=== PATIENT | female | born 1990 | race Hispanic/Latino ===

== ENCOUNTER 2023-07-08 10:57 | Day surgery (SDC) | payer BC ==
[2023-07-08 09:00] LABS: Absolute Lymphocytes (CBC) 1.8 K/uL (0.7-4.9); Hematocrit 40.3 % (36.0-45.0); Lymphocytes % 23.3 % (15.3-44.8); MCV 91.9 fL (80-100); MPV 8.3 fL (7.6-11.3); Platelets 270 thou/uL (152-406); RBC Red Blood Cell Count 4.38 M/uL (3.86-4.86)
--- NOTE | 2023-07-08 09:16 | RAD REPORT ---
EXAM DESCRIPTION: Araceli Prince (2 Views)07/08/2023 8:59 am CLINICAL HISTORY: Preop for cholecystectomy COMPARISON: 2017 FINDINGS: The lungs appear clear of acute infiltrate. The heart is normal size IMPRESSION: No acute abnormalities displayed
[2023-07-08 09:17] LABS: Albumin 3.6 g/dL (3.4-5.0); Bilirubin Direct 0.2 mg/dL (0-0.2); Bilirubin Indirect, Calculated 0.2 mg/dL (0.2-0.8); Bilirubin Total 0.4 mg/dL (0.2-1.0); Protein, Total 7.5 g/dL (6.4-8.2)
[2023-07-08] MEDS: Ringers Lactate 1,000 ML IV ONE (11:20)
[2023-07-08] MEDS ORDERED: ROCURONIUM 50 MG/5 ML VIAL IV ONE (11:53)
[2023-07-08] MEDS ORDERED: SUGAMMADEX SODIUM 200 MG/2 ML VIAL IV ONE (11:53)
[2023-07-08] MEDS ORDERED: SUCCINYLCHOLINE 20 MG/ML (10 ML) IV ONE (11:53)
[2023-07-08] MEDS ORDERED: FENTANYL CITR 100 MCG/2 ML ONE ×2 (11:54→12:42)
[2023-07-08] MEDS ORDERED: ONDANSETRON 4 MG/2 ML VIAL ONE (11:54)
[2023-07-08] MEDS ORDERED: MIDAZOLAM HCL 2 MG/2 ML INJ ONE (11:54)
[2023-07-08] MEDS ORDERED: LIDOCAINE 2% MPF 5 ML VIAL ONE (11:54)
[2023-07-08] MEDS ORDERED: propofoL 200 MG/20 ML VIAL IV ONE (11:54)
[2023-07-08] MEDS: CEFOXITIN SODIUM 1 GM/VIAL ONE (12:40)
[2023-07-08] MEDS ORDERED: dexAMETHasone 10 MG/ML VIAL ONE (12:40)
[2023-07-08] MEDS: HYDROMORPHONE HCL 1 MG/ML INJ ONE (13:50)
[2023-07-08 13:56] VITALS: O2SAT 100
--- NOTE | 2023-07-08 14:08 | P.BOP ---
Preoperative diagnosis: acute cholecystitis, symptomatic cholelithiasis Postoperative diagnosis: same Primary procedure: Laparoscopic cholecystectomy Estimated blood loss: <10cc Specimen: gb Findings: as above Anesthesia: General Complications: None Transferred to: Recovery Room Condition: Good
[2023-07-08] MEDS: CODEINE 30MG/APAP 300MG TAB ONE (14:50)
[2023-07-08 14:59] VITALS: BP 117/81; TEMP 97.8
--- NOTE | 2023-07-08 21:04 | OP ---
Date of Procedure: 07/08/2023 Surgeon: Chalino Michele MD Preoperative Diagnoses: Acute cholecystitis, symptomatic cholelithiasis. Postoperative Diagnoses: Acute cholecystitis, symptomatic cholelithiasis. Procedure: Laparoscopic cholecystectomy. Estimated Blood Loss: Less than 10 mL. Specimen: Gallbladder. Anesthesia: General plus local. Complications: None. Indications: This is a case of a 32-year-old patient, who comes to us with above diagnoses. We full y explained the benefits, alternatives, and risks of laparoscopic possible open cholecystectomy which include, but not limited to infection, bleeding, damage to adjacent structures, anesthesia complicat ion, choledocholithiasis, bile leak, pancreatitis, MT, and . She also understands this may not relieve the symptoms. She might need more than one surgical intervention. She understood, signed a consent. Description Of Procedure: The patient was brought to the operating room, placed in supine position, anesthesia was done without complication. Abdominal area was prepped and draped in a sterile fashion Marcaine 0.5% was injected for local anesthetic, followed by sharp incision of the skin in the infra umbilical region. Incision was carried down to fascia, which was opened under direct vision. Perito neum was encountered, opened under direct vision. Vicryl #1 was placed inside the fascia. Jessica tr ocar was carefully introduced. No bleeding was obtained. I placed 3 more trocars, 5 mm each one of them, in epigastric, right upper quadrant area under direct visualization. This allowed me to put a grasper in the fundus of the gallbladder and other 1 in infundibulum, retracting the gallbladder in t he inferolateral fashion, exposing the triangle of Calot, obtaining critical view. Cystic duct and c ystic artery were clearly isolated, freed circumferentially and a connection between those and the ga llbladder was clearly identified. I proceeded to ligate those by using at least 3 clips proximal, 1 clip distal, ligation in middle. Same was done with the cystic artery. No bile leak. No bleeding. The gallbladder was removed from liver using Bovie cauterizer and removed from abdominal cavity usin g EndoCatch through the umbilical incision. The area was inspected once again, no bile leak, no blee ding. At that moment, I proceeded to remove the trocars under direct vision. Deflated the pneumoper itoneum. Closed the fascia with #1 Vicryl, irrigated subcutaneous tissue, closed that with 3-0 chrom ic and the skin with 3-0 chromic and Steri-Strips on top. Sponge counts, instrument counts were nicki ect. The patient was sent to recovery in stable condition. Disposition: Home. Condition: Stable. Activity: As tolerated. No heavy lifting. Follow up in my office in 1 week. Call for appointment [phone]. Keep area dry for 48 hours, then may shower. Keep Steri-Strips intact. JUDD/LUIS ALFREDO Voice ID: [id number] Report ID: [id number]
== END 2023-07-08 15:30 | disposition home or self-care (01) ==
LOC: OR 10:57
PROVIDERS: ATTEND Surgery
PROC: 0FT44ZZ Resection of Gallbladder, Percutaneous Endoscopic Approach (ICD-10-PCS; principal; 2023-07-08 12:30)
DX: K80.10 Calculus of gallbladder with chronic cholecystitis without obstruction (principal)
CPT/HCPCS: 85025; 80048; 36415; 80076; 88304; 83690; 71046; 47562; J2704; J2001; J2250; J3010 ×2; J1100; J1170; J0694; J2405; J7120